=== PATIENT | female | born 1995 | race Caucasian/White ===

== ENCOUNTER 2018-07-30 18:52 | Emergency (ER) | payer OTHER ==
[~2018-07-30] VITALS: Ht 160 cm; Wt 59.9 kg
== END 2018-07-30 21:45 | disposition home or self-care (01) ==
LOC: ER 18:52
DX: R19.7 Diarrhea, unspecified (principal)

== ENCOUNTER 2018-08-10 00:10 | Emergency (ER) | payer OTHER ==
[~2018-08-10] VITALS: Ht 167.6 cm; Wt 61.7 kg
[2018-08-10] MEDS ORDERED: MEDROL8 MG PO (04:00)
[2018-08-10] MEDS ORDERED: LANACANE FIRST99 GM TOP (04:00)
== END 2018-08-10 05:18 | disposition home or self-care (01) ==
LOC: ER 00:10
DX: L56.8 Other specified acute skin changes due to ultraviolet radiation (principal); X32.XXXA Exposure to sunlight, initial encounter; Y93.89 Activity, other specified; Y92.89 Other specified places as the place of occurrence of the external cause; Y99.8 Other external cause status